=== PATIENT | male | born 1955 | race Hispanic/Latino ===

== ENCOUNTER 2020-09-13 00:06 | Emergency (ER) | payer OTHER, MEDICARE ==
[2020-09-13] MEDS ORDERED: ASPIRIN 325 MG TABLET ONE (00:45)
[2020-09-13 00:47] LABS: BASOPHILS % (AUTO) 0.4 % (0.0-5.0); EOSINOPHILS % (AUTO) 0.4 % (0.0-8.0); HEMATOCRIT 40.9 % (42-54); LYMPHOCYTES % (AUTO) 19.1 % (21.0-51.0); MEAN CORPUSCULAR HEMOGLOBIN 27.7 pg (27.0-33.0); MEAN CORPUSCULAR HGB CONC 33.3 g/dL (32.0-36.0); MEAN CORPUSCULAR VOLUME 83.3 fL (79-99); MONOCYTES % (AUTO) 6.4 % (3.0-13.0); NEUTROPHILS % (AUTO) 73.4 % (40.0-77.0); PLATELET COUNT (AUTO) 183 K/uL (130-400); RED BLOOD CELL COUNT(AUTO) 4.91 MIL/uL (4.50-6.20); WHITE BLOOD COUNT (AUTO) 7.9 K/uL (4.8-10.8)
[2020-09-13 00:57] LABS: CREATININE 1.4 mg/dL (0.5-1.5); POTASSIUM 3.4 mmol/L (3.5-5.1)
[2020-09-13 01:00] LABS: INR 1.03 (0.85-1.15); PARTIAL THROMBOPLASTIN TIME 29.7 SEC (26.3-35.5); PROTHROMBIN TIME 11.1 SEC (9.6-11.6)
[2020-09-13 01:02] LABS: ALBUMIN 4.1 g/dL (3.5-5.0); BILIRUBIN,TOTAL 0.4 mg/dL (0.2-1.0); TOTAL PROTEIN, SERUM 7.8 g/dL (6.0-8.3)
[2020-09-13] MEDS ORDERED: LORAZEPAM 2 MG/ML 1 ML VIAL ONE (01:29)
[2020-09-13 01:32] LABS: APPEARANCE,URINE Clear (CLEAR); BILIRUBIN,URINE Negative (NEGATIVE); COLOR,URINE Yellow (YELLOW); GLUCOSE, URINE (UA) Negative (NEGATIVE); KETONES,URINE Negative (NEGATIVE); LEUKOCYTE ESTERASE ,URINE Trace (NEGATIVE); NITRATE,URINE Negative (NEGATIVE); OCCULT BLOOD,URINE Negative (NEGATIVE); PH,URINE 6.5 (5.0-8.0); PROTEIN,URINE Negative (NEGATIVE); UROBILINOGEN,URINE 0.2 mg/dL (0.2-1.0)
[2020-09-13 01:44] LABS: BACTERIA,URINE Few /HPF (None Seen); RBC,URINE 0-1 /HPF (0-1); SQUAMOUS EPITHELIAL CELL,UR 0-2 /HPF (0-2)
== END 2020-09-13 03:26 | disposition home or self-care (01) ==
LOC: EDH 00:06
DX: R07.89 Other chest pain (principal); R10.13 Epigastric pain; E07.9 Disorder of thyroid, unspecified
CPT/HCPCS: 36415; 71045; 80053; 81001; 82550; 84484; 85025; 85610; 85730; 93005; 96374; 99285; J2060

== ENCOUNTER 2020-10-10 10:20 | Emergency (ER) | payer OTHER, MEDICARE ==
[2020-10-10] MEDS ORDERED: LORAZEPAM 2 MG/ML 1 ML VIAL ONE (12:45)
[2020-10-10 13:00] LABS: BASOPHILS % (AUTO) 0.4 % (0.0-5.0); EOSINOPHILS % (AUTO) 0.1 % (0.0-8.0); HEMATOCRIT 40.5 % (42-54); LYMPHOCYTES % (AUTO) 12.7 % (21.0-51.0); MEAN CORPUSCULAR HEMOGLOBIN 27.5 pg (27.0-33.0); MEAN CORPUSCULAR HGB CONC 33.1 g/dL (32.0-36.0); MEAN CORPUSCULAR VOLUME 83.2 fL (79-99); MONOCYTES % (AUTO) 5.1 % (3.0-13.0); NEUTROPHILS % (AUTO) 81.4 % (40.0-77.0); PLATELET COUNT (AUTO) 185 K/uL (130-400); RED BLOOD CELL COUNT(AUTO) 4.87 MIL/uL (4.50-6.20); RED CELL DISTRIBUTION WIDTH 12.8 % (11.0-15.5); WHITE BLOOD COUNT (AUTO) 6.8 K/uL (4.8-10.8)
[2020-10-10 13:11] LABS: ALBUMIN 3.5 g/dL (3.5-5.0); BILIRUBIN,TOTAL 0.3 mg/dL (0.2-1.0); CREATININE 1.5 mg/dL (0.5-1.5); POTASSIUM 3.3 mmol/L (3.5-5.1); TOTAL PROTEIN, SERUM 7.1 g/dL (6.0-8.3)
[2020-10-10 13:44] LABS: APPEARANCE,URINE Clear (CLEAR); BILIRUBIN,URINE Negative (NEGATIVE); COLOR,URINE Yellow (YELLOW); GLUCOSE, URINE (UA) Negative (NEGATIVE); KETONES,URINE Trace mg/dL (NEGATIVE); LEUKOCYTE ESTERASE ,URINE Negative (NEGATIVE); NITRATE,URINE Negative (NEGATIVE); OCCULT BLOOD,URINE Negative (NEGATIVE); PROTEIN,URINE Negative (NEGATIVE); UROBILINOGEN,URINE 0.2 mg/dL (0.2-1.0)
[2020-10-10 14:01] LABS: BACTERIA,URINE Rare /HPF (None Seen); RBC,URINE 0-1 /HPF (0-1); SQUAMOUS EPITHELIAL CELL,UR Rare /HPF (0-2); WBC,URINE 0-1 /HPF (0-1)
== END 2020-10-10 14:15 | disposition home or self-care (01) ==
LOC: EDH 10:20
DX: R33.8 Other retention of urine (principal); N40.1 Benign prostatic hyperplasia with lower urinary tract symptoms
CPT/HCPCS: 36415; 51702; 74018; 74176; 80053; 81001; 85025; 96374; 99285; J2060

== ENCOUNTER → 2020-10-10 | Emergency (ER) | payer OTHER, MEDICARE | LOC: EDH 17:22 | DX: R31.9 Hematuria, unspecified (principal); E07.9 Disorder of thyroid, unspecified | CPT/HCPCS: 99281 ==

== ENCOUNTER → 2020-10-18 | Outpatient (CLI) | payer OTHER, MEDICARE | END | disposition home or self-care (01) | LOC: RAH 09:32 | PROVIDERS: ATTEND Urology | DX: K80.20 Calculus of gallbladder without cholecystitis without obstruction (principal); N40.0 Benign prostatic hyperplasia without lower urinary tract symptoms; R33.9 Retention of urine, unspecified; M43.17 Spondylolisthesis, lumbosacral region; M47.817 Spondylosis without myelopathy or radiculopathy, lumbosacral region | CPT/HCPCS: 74176 ==

== ENCOUNTER 2020-12-03 10:00 | Inpatient (IN) | payer OTHER, MEDICARE ==
[~2020-12-03] VITALS: Ht 165.1 cm; Wt 62.1 kg
[2020-12-03 10:31] LABS: BASOPHILS % (AUTO) 0.3 % (0.0-5.0); EOSINOPHILS % (AUTO) 0.7 % (0.0-8.0); HEMATOCRIT 40.5 % (42-54); LYMPHOCYTES % (AUTO) 6.4 % (21.0-51.0); MEAN CORPUSCULAR HEMOGLOBIN 27.4 pg (27.0-33.0); MEAN CORPUSCULAR HGB CONC 34.8 g/dL (32.0-36.0); MEAN CORPUSCULAR VOLUME 78.8 fL (79-99); MONOCYTES % (AUTO) 10.9 % (3.0-13.0); NEUTROPHILS % (AUTO) 80.9 % (40.0-77.0); PLATELET COUNT (AUTO) 301 K/uL (130-400); RED BLOOD CELL COUNT(AUTO) 5.14 MIL/uL (4.50-6.20); RED CELL DISTRIBUTION WIDTH 12.6 % (11.0-15.5); WHITE BLOOD COUNT (AUTO) 9.9 K/uL (4.8-10.8)
[2020-12-03 10:47] LABS: BILIRUBIN,TOTAL 1.2 mg/dL (0.2-1.0); CREATININE 1.5 mg/dL (0.5-1.5); POTASSIUM 4.1 mmol/L (3.5-5.1)
[2020-12-03] MEDS ORDERED: 0.9%NACL 1000ML 1,000 ML IV ONE (11:42)
[2020-12-03 12:38] LABS: INR 1.1 (0.85-1.15); PROTHROMBIN TIME 11.9 SEC (9.6-11.6)
[2020-12-03 12:39] LABS: PARTIAL THROMBOPLASTIN TIME 32.6 SEC (26.3-35.5)
[2020-12-03 12:45] LABS: APPEARANCE,URINE CLOUDY (CLEAR); BILIRUBIN,URINE SMALL (NEGATIVE); COLOR,URINE YELLOW (YELLOW); GLUCOSE, URINE (UA) NEGATIVE (NEGATIVE); KETONES,URINE 40 mg/dL (NEGATIVE); LEUKOCYTE ESTERASE ,URINE LARGE (NEGATIVE); NITRATE,URINE NEGATIVE (NEGATIVE); OCCULT BLOOD,URINE LARGE (NEGATIVE); PROTEIN,URINE 100 mg/dL (NEGATIVE); UROBILINOGEN,URINE 0.2 mg/dL (0.2-1.0)
[2020-12-03 12:50] LABS: MAGNESIUM 1.6 mg/dL (1.80-2.40); THYROID STIMULATING HORMONE 2.61 uIU/mL (0.36-3.74)
[2020-12-03 13:00] VITALS: BP 114/62
[2020-12-03 13:02] LABS: BACTERIA,URINE Many /HPF (None Seen); SQUAMOUS EPITHELIAL CELL,UR None Seen /HPF (0-2); WBC,URINE TNTC /HPF (0-1)
[2020-12-03] MEDS ORDERED: ACETAMINOPHEN 325 MG TAB PO PRN ×2 (13:45)
[2020-12-03] MEDS ORDERED: HYDROCODONE/ACETAMINOPHEN 5/325 MG TAB PO PRN (13:45)
[2020-12-03] MEDS ORDERED: DEXTROSE 50%-WATER 50 ML DISP.SYRIN IV PRN (13:45)
[2020-12-03] MEDS ORDERED: GLUCAGON 1MG KIT 1 MG ML IM PRN (13:45)
[2020-12-03] MEDS ORDERED: ONDANSETRON 4MG INJ IVP PRN (13:45)
[2020-12-03] MEDS ORDERED: MORPHINE 2 MG SYG IVP PRN (13:45)
[2020-12-03] MEDS: 0.9%NACL 1000ML 1,000 ML IV SCH (14:19)
[2020-12-03] MEDS: INSULIN R PO SSI SQ SCH ×2 (16:04→21:00)
[2020-12-03 20:00] VITALS: BP 92/63
[2020-12-03] MEDS ORDERED: TAMS-1 PO (20:56)
[2020-12-04] VITALS: BP 101/68
[2020-12-04] MEDS: 0.9%NACL 1000ML 1,000 ML IV SCH ×3 (00:21→20:34)
[2020-12-04 04:00] VITALS: BP 95/59
[2020-12-04 06:24] LABS: HEMATOCRIT 34.4 % (42-54); MEAN CORPUSCULAR HGB CONC 33.4 g/dL (32.0-36.0); MEAN CORPUSCULAR VOLUME 80.8 fL (79-99); RED BLOOD CELL COUNT(AUTO) 4.26 MIL/uL (4.50-6.20); RED CELL DISTRIBUTION WIDTH 12.8 % (11.0-15.5); WHITE BLOOD COUNT (AUTO) 5.6 K/uL (4.8-10.8)
[2020-12-04 06:38] LABS: CREATININE 1.1 mg/dL (0.5-1.5); MAGNESIUM 1.8 mg/dL (1.80-2.40); PHOSPHORUS 3.1 mg/dL (2.5-4.9); POTASSIUM 3.5 mmol/L (3.5-5.1)
[2020-12-04] MEDS: INSULIN R PO SSI SQ SCH ×4 (06:49→21:00)
[2020-12-04 08:00] VITALS: BP 104/63
[2020-12-04] MEDS ORDERED: CEFTRIAXONE 2GM VIAL IVP SCH (09:00)
[2020-12-04] MEDS ORDERED: GLUCAGON 1MG KIT 1 MG ML IM PRN (09:30)
[2020-12-04] MEDS ORDERED: DEXTROSE 50%-WATER 50 ML DISP.SYRIN IV PRN (09:30)
[2020-12-04] MEDS ORDERED: LIDOCAINE HCL-MPF 1% 2ML VIAL IV PRN (09:30)
[2020-12-04] MEDS ORDERED: POTASSIUM CHLORIDE 20MEQ/100ML 100 ML IV PRN (09:30)
[2020-12-04] MEDS: TAMSULOSIN HCL 0.4 MG CAP.ER.24H PO SCH ×2 (10:29→20:30)
[2020-12-04 11:35] VITALS: BP 91/56
[2020-12-04] MEDS ORDERED: LACTULOSE 20 GM/30 ML UDCUP PO SCH (15:45)
[2020-12-04] MEDS ORDERED: LACTULOSE 20 GM/30 ML UDCUP ONE (15:47)
[2020-12-04] MEDS: MAGNESIUM 2GM PREMIX 50ML 50 ML IV PRN (15:58)
[2020-12-04 16:00] VITALS: BP 108/63
[2020-12-04 20:00] VITALS: BP 128/69
[2020-12-04] MEDS: ZOSYN 3.375GM+NS 50ML 50 ML IV SCH (20:30)
[2020-12-04] MEDS: LACTULOSE 20 GM/30 ML UDCUP PO SCH (20:34)
[2020-12-05] VITALS (7 sets, daily range): BP systolic 89–106; BP diastolic 56–68
[2020-12-05] MEDS: ZOSYN 3.375GM+NS 50ML 50 ML IV SCH (04:43)
[2020-12-05] MEDS: 0.9%NACL 1000ML 1,000 ML IV SCH ×3 (04:43→20:05)
[2020-12-05 06:03] LABS: HEMATOCRIT 33.1 % (42-54); MEAN CORPUSCULAR HEMOGLOBIN 26.8 pg (27.0-33.0); MEAN CORPUSCULAR HGB CONC 33.2 g/dL (32.0-36.0); MEAN CORPUSCULAR VOLUME 80.5 fL (79-99); RED BLOOD CELL COUNT(AUTO) 4.11 MIL/uL (4.50-6.20); RED CELL DISTRIBUTION WIDTH 12.8 % (11.0-15.5); WHITE BLOOD COUNT (AUTO) 10.1 K/uL (4.8-10.8)
[2020-12-05 06:24] LABS: CREATININE 1.2 mg/dL (0.5-1.5); MAGNESIUM 1.9 mg/dL (1.80-2.40); POTASSIUM 3.7 mmol/L (3.5-5.1)
[2020-12-05] MEDS: INSULIN R PO SSI SQ SCH ×2 (06:56→11:30)
[2020-12-05] MEDS: LACTULOSE 20 GM/30 ML UDCUP PO SCH (09:00)
[2020-12-05] MEDS: TAMSULOSIN HCL 0.4 MG CAP.ER.24H PO SCH ×3 (11:13→21:15)
[2020-12-05] MEDS ORDERED: CEFTRIAXONE 500MG VIAL IV SCH (11:45)
[2020-12-05] MEDS: SODIUM CHLORIDE 1,000 MG TAB PO SCH ×2 (11:47→16:38)
[2020-12-05] MEDS: CEFTRIAXONE 1G VIAL IVP SCH (12:45)
[2020-12-05] MEDS ORDERED: CEFTRIAXONE 2GM VIAL ONE (12:47)
[2020-12-05] MEDS ORDERED: LACTULOSE 20 GM/30 ML UDCUP PO PRN (20:00)
[2020-12-05] MEDS: MAGNESIUM 2GM PREMIX 50ML 50 ML IV PRN (21:08)
[2020-12-06] MEDS: 0.9%NACL 1000ML 1,000 ML IV SCH ×3 (03:19→09:14)
[2020-12-06 03:30] VITALS: BP 109/50
[2020-12-06 03:42] LABS: BASOPHILS % (AUTO) 0.2 % (0.0-5.0); EOSINOPHILS % (AUTO) 0.2 % (0.0-8.0); HEMATOCRIT 30.6 % (42-54); LYMPHOCYTES % (AUTO) 10.2 % (21.0-51.0); MEAN CORPUSCULAR HEMOGLOBIN 26.9 pg (27.0-33.0); MEAN CORPUSCULAR HGB CONC 33.3 g/dL (32.0-36.0); MEAN CORPUSCULAR VOLUME 80.7 fL (79-99); MONOCYTES % (AUTO) 8.7 % (3.0-13.0); NEUTROPHILS % (AUTO) 80.1 % (40.0-77.0); PLATELET COUNT (AUTO) 204 K/uL (130-400); RED BLOOD CELL COUNT(AUTO) 3.79 MIL/uL (4.50-6.20); RED CELL DISTRIBUTION WIDTH 13.1 % (11.0-15.5); WHITE BLOOD COUNT (AUTO) 8.5 K/uL (4.8-10.8)
[2020-12-06 03:55] LABS: ALBUMIN 1.9 g/dL (3.5-5.0); BILIRUBIN,TOTAL 0.4 mg/dL (0.2-1.0); MAGNESIUM 1.3 mg/dL (1.80-2.40); POTASSIUM 3.8 mmol/L (3.5-5.1); TOTAL PROTEIN, SERUM 5.5 g/dL (6.0-8.3)
[2020-12-06] MEDS: MAGNESIUM 2GM PREMIX 50ML 50 ML IV PRN (04:40)
[2020-12-06 08:07] VITALS: BP 97/62
[2020-12-06] MEDS: SODIUM CHLORIDE 1,000 MG TAB PO SCH ×3 (09:13→16:15)
[2020-12-06] MEDS: TAMSULOSIN HCL 0.4 MG CAP.ER.24H PO SCH (09:13)
[2020-12-06] MEDS: CEFTRIAXONE 1G VIAL IVP SCH (09:13)
[2020-12-06 11:20] VITALS: BP 95/66
[2020-12-06] MEDS ORDERED: LEVO750T46 PO (14:51)
[2020-12-06] MEDS ORDERED: SODI1TAB4 PO (14:51)
[2020-12-06 16:39] VITALS: BP 111/70
== END 2020-12-06 18:15 | disposition home or self-care (01) | DRG 690 ==
LOC: EDH 10:00 → EDHIP 11:59 → 3AH 12:54
PROVIDERS: ADMIT Internal Medicine Critical Care Medicine; ATTEND Internal Medicine Critical Care Medicine
DX: N39.0 Urinary tract infection, site not specified (principal); E87.1 Hypo-osmolality and hyponatremia; N40.1 Benign prostatic hyperplasia with lower urinary tract symptoms; E86.0 Dehydration; E03.9 Hypothyroidism, unspecified; K80.20 Calculus of gallbladder without cholecystitis without obstruction; N13.8 Other obstructive and reflux uropathy; E86.1 Hypovolemia; B96.89 Other specified bacterial agents as the cause of diseases classified elsewhere; Z20.822 Contact with and (suspected) exposure to COVID-19
CPT/HCPCS: 36415; 71045; 74176; 80048; 80053; 81001; 82550; 82948; 83605; 83690; 83735; 83880; 84100; 84145; 84443; 84484; 85025; 85027; 85610; 85730; 87040; 87077; 87088; 87186; 87426; 87804; 93005; 97039; G0378; J0696; J2543; J3475; J3480; J3490; J7030

== ENCOUNTER 2020-12-20 08:17 | Observation (INO) | payer OTHER, MEDICARE ==
[2020-12-15 12:38] LABS: APPEARANCE,URINE Clear (CLEAR); BILIRUBIN,URINE Negative (NEGATIVE); COLOR,URINE Yellow (YELLOW); GLUCOSE, URINE (UA) Negative (NEGATIVE); KETONES,URINE 40 mg/dL (NEGATIVE); LEUKOCYTE ESTERASE ,URINE Trace (NEGATIVE); NITRATE,URINE Negative (NEGATIVE); OCCULT BLOOD,URINE Trace (NEGATIVE); PH,URINE 6.5 (5.0-8.0); PROTEIN,URINE POS 1+ mg/dL (NEGATIVE); UROBILINOGEN,URINE 0.2 mg/dL (0.2-1.0)
[2020-12-15 13:05] LABS: BACTERIA,URINE Few /HPF (None Seen); MUCUS,URINE Few LPF (None Seen); SQUAMOUS EPITHELIAL CELL,UR 0-2 /HPF (0-2)
[2020-12-15 13:14] LABS: MEAN CORPUSCULAR HEMOGLOBIN 27.1 pg (27.0-33.0); MEAN CORPUSCULAR HGB CONC 32.6 g/dL (32.0-36.0); RED BLOOD CELL COUNT(AUTO) 4.58 MIL/uL (4.50-6.20); RED CELL DISTRIBUTION WIDTH 13.4 % (11.0-15.5); WHITE BLOOD COUNT (AUTO) 6.1 K/uL (4.8-10.8)
[2020-12-15 13:31] LABS: INR 1.15 (0.85-1.15); PROTHROMBIN TIME 12.4 SEC (9.6-11.6)
[2020-12-15 13:32] LABS: PARTIAL THROMBOPLASTIN TIME 31.4 SEC (26.3-35.5)
[2020-12-15 13:54] LABS: BILIRUBIN,TOTAL 0.7 mg/dL (0.2-1.0); POTASSIUM 3.3 mmol/L (3.5-5.1); TOTAL PROTEIN, SERUM 7.3 g/dL (6.0-8.3)
[2020-12-19 11:21] VITALS: BP 117/80
[2020-12-20] VITALS (16 sets, daily range): BP systolic 96–131; BP diastolic 55–80
[~2020-12-20] VITALS: Ht 167.6 cm; Wt 69.9 kg
[~2020-12-20 08:17] MED LIST: LACTATED RINGERS 1000ML 1,000 ML IV SCH; TAMS-1 PO
[2020-12-20] MEDS ORDERED: MEROPENEM 1 GM VIAL ONE (09:49)
[2020-12-20] MEDS ORDERED: SUCCINYLCHOLINE 200MG/10ML SYR ONE ×2 (12:10→12:11)
[2020-12-20] MEDS ORDERED: ONDANSETRON HCL 4 MG/2 ML VIAL ONE (12:10)
[2020-12-20] MEDS ORDERED: GLYCOPYRROLATE 1 MG/5 ML SYRINGE ONE (12:10)
[2020-12-20] MEDS ORDERED: LIDOCAINE PF 2% 5ML ABBOJECT ONE ×2 (12:10→12:11)
[2020-12-20] MEDS ORDERED: MIDAZOLAM HCL 1 MG/ML 2ML VIAL ONE (12:10)
[2020-12-20] MEDS ORDERED: NEOSTIGMINE 5MG/5ML SYR IV ONE (12:10)
[2020-12-20] MEDS ORDERED: DEXAMETHASONE SOD PHOSPHATE 10MG/ML 1ML VIAL ONE (12:10)
[2020-12-20] MEDS ORDERED: ROCURONIUM 10MG/1ML SYR 10 MG/ML ML ONE (12:11)
[2020-12-20] MEDS ORDERED: PROPOFOL 10 MG/ML 20ML VIAL IV ONE (12:11)
[2020-12-20] MEDS ORDERED: FENTANYL CITRATE PF 50 MCG/1 ML 2ML VIAL ONE (12:11)
[2020-12-20] MEDS ORDERED: IOHEXOL-350 50ML VIAL IV ONE (12:39)
[2020-12-20] MEDS ORDERED: MEPERIDINE-PF 25 MG/ML SYG ONE ×2 (13:07→13:33)
[2020-12-20] MEDS ORDERED: PHENYLEPHRINE HCL 10 MG/ML 1ML VIAL IV ONE (13:29)
[2020-12-20] MEDS ORDERED: AMINOCAPROIC ACID 250 MG/ML 20 ML VIAL ONE (13:47)
[2020-12-20] MEDS ORDERED: FUROSEMIDE 10 MG/ML 4ML VIAL IV SCH (16:00)
[2020-12-20] MEDS ORDERED: MEPERIDINE-PF 75 MG/ML SYG IM PRN (16:15)
[2020-12-20] MEDS ORDERED: ACETAMINOPHEN 325 MG TAB PO PRN (16:15)
[2020-12-20] MEDS ORDERED: ONDANSETRON HCL 4 MG/2 ML VIAL IVP PRN (16:15)
[2020-12-20] MEDS ORDERED: SODIUM CHLORIDE 0.9% IV SCH (17:00)
[2020-12-20] MEDS ORDERED: AMINOCAPROIC ACID IV SCH (17:00)
[2020-12-20] MEDS ORDERED: ACETAMINOPHEN-CODEINE 300/30MG TAB PO PRN (21:15)
[2020-12-20] MEDS: LACTATED RINGERS 1000ML 1,000 ML IV SCH (22:11)
[2020-12-20] MEDS: MEROPENEM 1 GM VIAL IVP SCH (22:11)
[2020-12-21] VITALS (13 sets, daily range): BP systolic 95–116; BP diastolic 56–73
[2020-12-21 06:11] LABS: BASOPHILS % (AUTO) 0.1 % (0.0-5.0); HEMATOCRIT 33.3 % (42-54); MEAN CORPUSCULAR HEMOGLOBIN 26.9 pg (27.0-33.0); MEAN CORPUSCULAR HGB CONC 32.4 g/dL (32.0-36.0); MONOCYTES % (AUTO) 5.4 % (3.0-13.0); NEUTROPHILS % (AUTO) 83.9 % (40.0-77.0); PLATELET COUNT (AUTO) 247 K/uL (130-400); RED BLOOD CELL COUNT(AUTO) 4.01 MIL/uL (4.50-6.20); RED CELL DISTRIBUTION WIDTH 13.7 % (11.0-15.5); WHITE BLOOD COUNT (AUTO) 10.5 K/uL (4.8-10.8)
[2020-12-21] MEDS: MEROPENEM 1 GM VIAL IVP SCH ×4 (06:14→20:35)
[2020-12-21 06:15] LABS: CREATININE 1.2 mg/dL (0.5-1.5); POTASSIUM 3.9 mmol/L (3.5-5.1)
[2020-12-21] MEDS: LACTATED RINGERS 1000ML 1,000 ML IV SCH ×2 (06:17→20:32)
[2020-12-21] MEDS ORDERED: MEROPENEM 1 GM VIAL IVP SCH (08:00)
[2020-12-21] MEDS ORDERED: IODIXANOL 320 MG/ML 100 ML VIAL ONE (08:56)
[2020-12-21] MEDS ORDERED: LIDOCAINE HCL 1% MDV 50ML VIAL ONE (08:56)
[2020-12-21] MEDS: TAMSULOSIN HCL 0.4 MG CAP.ER.24H PO SCH ×2 (09:00→20:32)
[2020-12-21] MEDS ORDERED: MIDAZOLAM HCL 1 MG/ML 2ML VIAL ONE (09:08)
[2020-12-21] MEDS ORDERED: FENTANYL CITRATE PF 50 MCG/1 ML 2ML VIAL ONE (09:08)
[2020-12-21] MEDS ORDERED: CYANOCOBALAMIN (VITAMIN B-12) 1000 MCG/ML 1ML VIAL IM SCH (18:15)
[2020-12-21] MEDS: FOLIC ACID 1 MG TABLET PO SCH (20:31)
[2020-12-21] MEDS: FERROUS SULFATE 325 MG TABLET.DR PO SCH (20:31)
[2020-12-21] MEDS: ENOXAPARIN SODIUM 30 MG/0.3 ML SQ SCH (20:31)
[2020-12-21] MEDS ORDERED: IRON SUCROSE COMPLEX 100 MG in SODIUM CHLORIDE 0.9% 50 ML IV SCH (21:00)
[2020-12-22 00:15] VITALS: BP 108/61
[2020-12-22 04:19] VITALS: BP 111/70
[2020-12-22] MEDS: LACTATED RINGERS 1000ML 1,000 ML IV SCH (05:05)
[2020-12-22] MEDS: MEROPENEM 1 GM VIAL IVP SCH ×3 (05:06→22:47)
[2020-12-22 07:26] LABS: BASOPHILS % (AUTO) 0.5 % (0.0-5.0); EOSINOPHILS % (AUTO) 0.2 % (0.0-8.0); HEMATOCRIT 30.9 % (42-54); LYMPHOCYTES % (AUTO) 18.6 % (21.0-51.0); MEAN CORPUSCULAR HEMOGLOBIN 26.9 pg (27.0-33.0); MEAN CORPUSCULAR HGB CONC 32.7 g/dL (32.0-36.0); MEAN CORPUSCULAR VOLUME 82.2 fL (79-99); MONOCYTES % (AUTO) 9.1 % (3.0-13.0); NEUTROPHILS % (AUTO) 71.3 % (40.0-77.0); PLATELET COUNT (AUTO) 200 K/uL (130-400); RED BLOOD CELL COUNT(AUTO) 3.76 MIL/uL (4.50-6.20); RED CELL DISTRIBUTION WIDTH 13.9 % (11.0-15.5); WHITE BLOOD COUNT (AUTO) 6.6 K/uL (4.8-10.8)
[2020-12-22 08:00] VITALS: BP 108/72
[2020-12-22] MEDS ORDERED: COMPOUND IV MISC 1 EACH IVSOLN MISC PRN ×2 (08:00→17:15)
[2020-12-22] MEDS ORDERED: IRON SUCROSE COMPLEX 100 MG in SODIUM CHLORIDE 0.9% 50 ML IV SCH ×2 (08:00→09:00)
[2020-12-22] MEDS: FOLIC ACID 1 MG TABLET PO SCH (08:45)
[2020-12-22] MEDS: TAMSULOSIN HCL 0.4 MG CAP.ER.24H PO SCH ×2 (08:45→22:47)
[2020-12-22] MEDS: FERROUS SULFATE 325 MG TABLET.DR PO SCH ×3 (08:45→17:23)
[2020-12-22 12:00] VITALS: BP 110/68
[2020-12-22 16:00] VITALS: BP 112/59
[2020-12-22] MEDS ORDERED: SODIUM CHLORIDE 0.9% 1000ML 1,000 ML IV SCH (16:30)
[2020-12-22] MEDS ORDERED: EPOETIN ALFA-EPBX (ESRD) 10,000 UNIT/ML VIAL SQ SCH (17:15)
[2020-12-22 20:00] VITALS: BP 116/76
[2020-12-22] MEDS ORDERED: MEROPENEM 1 GM VIAL ONE (20:26)
[2020-12-22] MEDS: ENOXAPARIN SODIUM 30 MG/0.3 ML SQ SCH (22:47)
[2020-12-23] VITALS: BP 100/73
[2020-12-23 05:01] LABS: HEMATOCRIT 31.3 % (42-54)
[2020-12-23] MEDS: MEROPENEM 1 GM VIAL IVP SCH ×3 (06:11→16:03)
[2020-12-23 07:30] VITALS: BP 95/68
[2020-12-23] MEDS ORDERED: EPOETIN ALFA-EPBX (ESRD) 10,000 UNIT/ML VIAL SQ SCH (09:00)
[2020-12-23] MEDS ORDERED: IRON SUCROSE COMPLEX 100 MG in SODIUM CHLORIDE 0.9% 50 ML IV SCH (09:00)
[2020-12-23] MEDS: FERROUS SULFATE 325 MG TABLET.DR PO SCH ×3 (10:10→16:08)
[2020-12-23] MEDS: TAMSULOSIN HCL 0.4 MG CAP.ER.24H PO SCH (10:11)
[2020-12-23] MEDS: FOLIC ACID 1 MG TABLET PO SCH (10:11)
[2020-12-23 11:00] VITALS: BP 109/80
[2020-12-23] MEDS ORDERED: PHARMACY COMMUNICATION MISC SCH (11:30)
[2020-12-23 16:00] VITALS: BP 110/71
== END 2020-12-23 18:35 | disposition home or self-care (01) ==
LOC: DAH 08:17 → DAHIP 08:18 → DAH 08:18 → 3CH 15:34
PROVIDERS: ADMIT Urology; ATTEND Urology
DX: N40.1 Benign prostatic hyperplasia with lower urinary tract symptoms (principal); Z20.822 Contact with and (suspected) exposure to COVID-19; R33.8 Other retention of urine; N13.30 Unspecified hydronephrosis; D64.9 Anemia, unspecified
CPT/HCPCS: 10030; 36415 ×4; 50432; 52601; 71046; 74018; 80048; 80053; 81001; 82948; 85014; 85018; 85025 ×2; 85027; 85610; 85730; 87088; 88305; 93005; 96361; 96365; 96366 ×4; 96367; 96372 ×3; 96375; 96376 ×3; A4215; A4221; A4222; A4223; A4346; A4354; A4358; A4600; A4663; A6260; C1729; C1758 ×2; C1769 ×2; C9803; G0378 ×73; J0330 ×2; J1100; J1644; J1650 ×2; J1756 ×3; J1940; J2001 ×2; J2175 ×3; J2185 ×10; J2250 ×2; J2370; J2405; J2704; J2710; J3010 ×2; J3420; J3490 ×4; J7030; J7040; J7120 ×6; Q5105; Q9967 ×2; U0003; 74420; 99156; 99157

== ENCOUNTER 2023-03-19 11:43 | Emergency (ER) | payer OTHER, MEDICARE ==
[~2023-03-19] VITALS: Ht 167.6 cm; Wt 90.7 kg
[~2023-03-19 11:43] MED LIST changes: -LACTATED RINGERS 1000ML 1,000 ML IV SCH
[2023-03-19 14:59] VITALS: BP 136/84
== END 2023-03-19 15:07 | disposition home or self-care (01) ==
LOC: EDH 11:43
DX: B08.5 Enteroviral vesicular pharyngitis (principal); R50.9 Fever, unspecified; Z98.890 Other specified postprocedural states
CPT/HCPCS: 99281

== ENCOUNTER 2023-04-25 17:08 | Emergency (ER) | payer OTHER, MEDICARE ==
[~2023-04-25] VITALS: Ht 167.6 cm; Wt 90.7 kg
[2023-04-25 17:09] VITALS: BP 139/83
[2023-04-25 18:15] LABS: HEMATOCRIT 47.6 % (42-54); MEAN CORPUSCULAR HEMOGLOBIN 28.2 pg (27.0-33.0); MEAN CORPUSCULAR VOLUME 85.5 fL (79-99); RED BLOOD CELL COUNT(AUTO) 5.57 MIL/uL (4.50-6.20); RED CELL DISTRIBUTION WIDTH 13.3 % (11.0-15.5); WHITE BLOOD COUNT (AUTO) 5.6 K/uL (4.8-10.8)
[2023-04-25 18:23] LABS: POTASSIUM 4.3 mmol/L (3.5-5.1)
[2023-04-25 18:29] LABS: ALBUMIN 3.8 g/dL (3.5-5.0); TOTAL PROTEIN, SERUM 7.5 g/dL (6.0-8.3)
[2023-04-25 18:30] LABS: APPEARANCE,URINE CLOUDY (CLEAR); COLOR,URINE RED (YELLOW)
[2023-04-25 18:34] LABS: BILIRUBIN,URINE NEGATIVE (NEGATIVE); GLUCOSE, URINE (UA) NEGATIVE (NEGATIVE)
[2023-04-25 18:35] LABS: KETONES,URINE NEGATIVE (NEGATIVE); OCCULT BLOOD,URINE LARGE (NEGATIVE)
[2023-04-25 18:36] LABS: LEUKOCYTE ESTERASE ,URINE TRACE Leu/uL (NEGATIVE); NITRATE,URINE NEGATIVE (NEGATIVE); PROTEIN,URINE 100 (2+) mg/dL (NEGATIVE); UROBILINOGEN,URINE 0.2 mg/dL (0.2-1.0)
[2023-04-25 18:40] LABS: RBC,URINE >100 /HPF (0-1)
[2023-04-25 18:41] LABS: BACTERIA,URINE Few /HPF (None Seen); SQUAMOUS EPITHELIAL CELL,UR None Seen /HPF (0-2)
[2023-04-25] MEDS ORDERED: PHEN-846 PO (18:58)
[2023-04-25] MEDS ORDERED: LEVO750T68 PO (18:58)
== END 2023-04-25 19:35 | disposition home or self-care (01) ==
LOC: EDH 17:08
DX: R31.9 Hematuria, unspecified (principal); N41.0 Acute prostatitis; R30.0 Dysuria; Z98.890 Other specified postprocedural states
CPT/HCPCS: 36415; 80053; 81001; 85027

== ENCOUNTER 2024-04-26 14:08 | Emergency (ER) | payer OTHER, MEDICARE ==
[~2024-04-26] VITALS: Ht 165.1 cm; Wt 90.7 kg
[~2024-04-26 14:08] MED LIST changes: +LEVO750T68 PO; +PHEN-846 PO
[2024-04-26] MEDS ORDERED: FAMC500T8 PO (14:18)
[2024-04-26] MEDS ORDERED: ACYC30OI2 TP (14:18)
[2024-04-26] MEDS ORDERED: METH4TAB3 PO (14:18)
[2024-04-26] MEDS: ACETAMINOPHEN 500 MG TABLET PO ONE (14:32)
[2024-04-26 14:42] VITALS: BP 141/72; PULSE 96; RESP 14; O2SAT 96
== END 2024-04-26 14:48 | disposition home or self-care (01) ==
LOC: EDH 14:08
DX: B02.9 Zoster without complications (principal); G62.9 Polyneuropathy, unspecified

== ENCOUNTER 2024-06-11 09:45 | Emergency (ER) | payer OTHER, MEDICARE ==
[~2024-06-11] VITALS: Ht 167.6 cm; Wt 86.2 kg
[~2024-06-11 09:45] MED LIST changes: +ACYC30OI2 TP; +FAMC500T8 PO; +METH4TAB3 PO
[2024-06-11 10:14] LABS: BASOPHILS # (AUTO) 0.02 K/uL (0.00-0.20); BASOPHILS % (AUTO) 0.4 % (0.0-5.0); HEMATOCRIT 46.4 % (42-54); IMMATURE GRANULOCYTE ABSOLUTE 0.01 K/uL (0-1); LYMPHOCYTES # (AUTO) 0.9 K/uL (1.0-4.8); LYMPHOCYTES % (AUTO) 17.2 % (21.0-51.0); MEAN CORPUSCULAR HEMOGLOBIN 28.6 pg (27.0-33.0); MEAN CORPUSCULAR HGB CONC 34.9 g/dL (32.0-36.0); MEAN CORPUSCULAR VOLUME 81.8 fL (79-99); MONOCYTES # (AUTO) 0.7 K/uL (0.1-1.0); MONOCYTES % (AUTO) 14.2 % (3.0-13.0); NEUTROPHILS # (AUTO) 3.4 K/uL (1.8-7.7); PLATELET COUNT (AUTO) 159 K/uL (130-400); RED BLOOD CELL COUNT(AUTO) 5.67 MIL/uL (4.50-6.20); RED CELL DISTRIBUTION WIDTH 13.7 % (11.0-15.5); WHITE BLOOD COUNT (AUTO) 5.1 K/uL (4.8-10.8)
[2024-06-11 10:19] LABS: APPEARANCE,URINE CLEAR (CLEAR); BILIRUBIN,URINE NEGATIVE (NEGATIVE); COLOR,URINE LIGHT-YELLOW (YELLOW); GLUCOSE, URINE (UA) NEGATIVE (NEGATIVE); KETONES,URINE 40 mg/dL (NEGATIVE); LEUKOCYTE ESTERASE ,URINE NEGATIVE Leu/uL (NEGATIVE); NITRATE,URINE NEGATIVE (NEGATIVE); OCCULT BLOOD,URINE NEGATIVE (NEGATIVE); PH,URINE 6.5 (5.0-8.0); PROTEIN,URINE NEGATIVE (NEGATIVE); UROBILINOGEN,URINE 0.2 mg/dL (0.2-1.0)
[2024-06-11 10:29] LABS: CREATININE 0.9 mg/dL (0.5-1.3); POTASSIUM 3.3 mmol/L (3.5-5.1)
[2024-06-11 10:31] LABS: INFLUENZA TYPE A Negative For Type A (NEGATIVE); INFLUENZA TYPE B Negative For Type B (NEGATIVE)
[2024-06-11 10:49] LABS: ADD UA MICROSCOPIC YES
[2024-06-11 10:52] LABS: COVID19 (SARS ANTIGEN RAPID) POSITIVE FOR SARS AG (NEGATIVE)
[2024-06-11 11:10] LABS: WBC,URINE 0-1 /HPF (0-1)
[2024-06-11 11:55] VITALS: TEMP 98.6
[2024-06-11] MEDS: ACETAMINOPHEN 325 MG TAB PO ONE (11:55)
[2024-06-11] MEDS: POTASSIUM BICARB/CIT AC 25 MEQ TABLET.EFF PO ONE (11:57)
[2024-06-11] MEDS ORDERED: BENZ-39 PO (12:18)
[2024-06-11] MEDS ORDERED: AZIT250T9 PO (12:18)
[2024-06-11 12:32] VITALS: BP 127/87; PULSE 104; RESP 20; O2SAT 99
== END 2024-06-11 12:34 | disposition home or self-care (01) ==
LOC: EDH 09:45
DX: U07.1 COVID-19 (principal); E87.6 Hypokalemia; Z79.899 Other long term (current) drug therapy; Z98.890 Other specified postprocedural states
CPT/HCPCS: 36415; 71045; 80048; 81001; 82550; 83605; 84484; 85025; 87040; 87086; 87426; 87804; 87880; 93005